=== PATIENT | female | born 1985 | race Hispanic/Latino ===

== ENCOUNTER 2017-10-09 13:29 | Emergency (ER) | payer MEDICARE ==
[2017-10-09] MEDS ORDERED: IBUPROFEN 200 MG TAB ONE (14:15)
[2017-10-09] MEDS ORDERED: IBUPROFEN 400 MG TABLET ONE (14:15)
== END 2017-10-09 15:43 | disposition home or self-care (01) ==
LOC: EDH 13:29
DX: H65.91 Unspecified nonsuppurative otitis media, right ear (principal); H93.11 Tinnitus, right ear; M19.90 Unspecified osteoarthritis, unspecified site

== ENCOUNTER 2018-12-05 11:32 | Emergency (ER) | payer MEDICARE | END 2018-12-05 11:50 | disposition home or self-care (01) | LOC: EDH 11:32 | DX: J03.90 Acute tonsillitis, unspecified (principal); K12.0 Recurrent oral aphthae; M19.90 Unspecified osteoarthritis, unspecified site; M79.7 Fibromyalgia; Z91.013 Allergy to seafood ==

== ENCOUNTER 2018-12-07 17:02 | Emergency (ER) | payer MEDICARE ==
[2018-12-07] MEDS ORDERED: TETANUS/DIPHTHERIA TOXOID [ADULT] 0.5 ML VIAL IM ONE (17:49)
== END 2018-12-07 18:11 | disposition home or self-care (01) ==
LOC: EDH 17:02
DX: S50.02XA Contusion of left elbow, initial encounter (principal); S80.02XA Contusion of left knee, initial encounter; S80.01XA Contusion of right knee, initial encounter; S60.221A Contusion of right hand, initial encounter; S40.812A Abrasion of left upper arm, initial encounter; M19.90 Unspecified osteoarthritis, unspecified site; M79.7 Fibromyalgia; Z91.013 Allergy to seafood; W01.0XXA Fall on same level from slipping, tripping and stumbling without subsequent striking against object, initial encounter; Y93.89 Activity, other specified; Y92.89 Other specified places as the place of occurrence of the external cause; Y99.8 Other external cause status
CPT/HCPCS: 73080; 73130; 73562; 90471; 90714